=== PATIENT | female | born 1960 | race Caucasian/White ===

== ENCOUNTER 2021-01-27 10:24 | Outpatient (CLI) | payer OTHER ==
--- NOTE | 2021-01-30 15:51 | Ultrasound Report ---
LIMITED ULTRASOUND OF LEFT BREAST: 01/27/2021 CLINICAL: Palpable left breast lump by physician. Comparison is made to exam dated: 01/27/2021 mammogram - [facility]. Real-time ultrasound of the left breast 2 o'clock region was performed. Heath scale images of the re al-time examination were reviewed. No significant abnormalities were seen sonographically in the left breast. IMPRESSION: NEGATIVE There is no sonographic evidence of malignancy. There is no abnormality seen in the left breast to correspond with the palpable abnormality, however, clinical correlation is recommended. A 1 year screening mammogram is recommended. This exam was interpreted at Station ID: [id number]. Electronically Signed By: Eleuterio strauss/kiara:01/27/2021 14:18:43 Ultrasound BI-RADS: 1 Negative BI-RADS CATEGORY: (1) - 1 RECOMMENDATION: (ANNUAL) - Recommend routine annual screening mammography. [id number] 1 year screening LATERALITY: (B)
--- NOTE | 2021-01-30 15:51 | Mammography Report ---
BILATERAL DIGITAL DIAGNOSTIC MAMMOGRAM 3D/2D: 01/27/2021 CLINICAL: Palpable lumps in both breasts. No prior exams were available for comparison. There are scattered fibroglandular elements in both br easts. There are surgical clips in axillae. There also is a benign intramammary node in both breasts in the lateral aspect. No significant masses, calcifications, or other findings are seen in either breast. IMPRESSION: INCOMPLETE: NEEDS ADDITIONAL IMAGING EVALUATION There is no abnormality seen in either breast to correspond with the palpable abnormality in the uppe r outer quadrant. Targeted ultrasound is recommended for further evaluation, which will be scheduled immediately following this exam. This exam was interpreted at Station ID: [id number]. NOTE: For mammograms, a report in lay terms will be sent to the patient. Approximately 15% of breast malignancies will not be visualized mammographically. In the management of a palpable breast mass, a negative mammogram must not discourage biopsy of a clinically suspicious lesion. Electronically Signed By: Eleuterio strauss/kiara:01/27/2021 14:16:23 ACR BI-RADS Category 0: Incomplete 3340F PARENCHYMAL PATTERN: (A) - The breast(s) demonstrate(s) scattered fibroglandular densities. BI-RADS CATEGORY: (0) - 0 Ultrasound [id number] Immediate follow-up LATERALITY: (B)
--- NOTE | 2021-01-30 15:51 | Ultrasound Report ---
LIMITED ULTRASOUND OF RIGHT BREAST: 01/27/2021 CLINICAL: Palpable right breast lump by physician. Comparison is made to exam dated: 01/27/2021 mammogram - [facility]. Real-time ultrasound of the right breast 11 o'clock region was performed. Heath scale images of the r eal-time examination were reviewed. No significant abnormalities were seen sonographically in the right breast. IMPRESSION: NEGATIVE There is no sonographic evidence of malignancy. There is no abnormality seen in the right breast to correspond with the palpable abnormality, however , clinical correlation is recommended. A 1 year screening mammogram is recommended. This exam was interpreted at Station ID: [id number]. Electronically Signed By: Eleuterio strauss/kiara:01/27/2021 14:17:56 Ultrasound BI-RADS: 1 Negative BI-RADS CATEGORY: (1) - 1 RECOMMENDATION: (ANNUAL) - Recommend routine annual screening mammography. [id number] 1 year screening LATERALITY: (B)
== END 2021-01-27 10:25 | disposition home or self-care (01) ==
LOC: DI 10:24
PROVIDERS: ATTEND Nurse Practitioner
DX: N63.21 Unspecified lump in the left breast, upper outer quadrant (principal); N63.11 Unspecified lump in the right breast, upper outer quadrant

== ENCOUNTER 2021-02-14 10:35 | Emergency (ER) | payer OTHER ==
[2021-02-14 11:22] LABS: BASOPHILS # (AUTO) 0.1 10^3/uL (0.0-0.1); EOSINOPHILS # (AUTO) 0.4 10^3/uL (0.0-0.7); EOSINOPHILS % (AUTO) 5.5 %; HGB - HEMOGLOBIN 14.7 g/dL (12.0-16.0); LYMPHOCYTES # (AUTO) 2.2 10^3/uL (1.5-3.5); MEAN CORPUSCULAR HEMOGLOBIN 29.8 pg (27.0-31.0); MEAN CORPUSCULAR HGB CONC 33.4 g/dL (32.0-36.0); MEAN CORPUSCULAR VOLUME 89.1 fL (81.0-99.0); MEAN PLATELET VOLUME 9.7 fL (7.9-10.8); MONOCYTES # (AUTO) 0.5 10^3/uL (0.0-1.0); MONOCYTES % (AUTO) 6.9 %; NEUTROPHILS # (AUTO) 3.8 10^3/uL (1.5-6.6); NEUTROPHILS % (AUTO) 54.5 %; PLT - PLATELET COUNT 300 10^3/uL (130-450); RED BLOOD COUNT 4.94 10^6/uL (4.20-5.40); RED CELL DISTRIBUTION WIDTH 13.1 % (12.0-15.0)
[2021-02-14 11:22] LABS: BILIRUBIN,URINE NEGATIVE (NEGATIVE); GLUCOSE, URINE (UA) NEGATIVE (NEGATIVE); KETONES,URINE (UA) NEGATIVE (NEGATIVE); LEUKOCYTE ESTERASE, URINE MODERATE (NEGATIVE); NITRITE,URINE NEGATIVE (NEGATIVE); OCCULT BLOOD,URINE TRACE-INTA (NEGATIVE); PROTEIN,URINE NEGATIVE (NEGATIVE); UROBILINOGEN,URINE 0.2 (NORMAL) E.U./dL (NORMAL)
[2021-02-14 11:23] LABS: CLARITY,URINE CLEAR (CLEAR)
[2021-02-14] MEDS ORDERED: ONDANSETRON 4 MG/2 ML VIAL IVP STA (11:36)
[2021-02-14] MEDS ORDERED: fentaNYL 100 MCG/2 ML VIAL IVP STA (11:36)
[2021-02-14] MEDS ORDERED: SODIUM CHLORIDE 0.9% 1,000 ML IV STA (11:36)
[2021-02-14 11:37] LABS: ALBUMIN 4.2 g/dL (3.2-5.5); ALBUMIN/GLOBULIN RATIO 1.3 (1.0-2.2); BILIRUBIN,TOTAL 0.8 mg/dL (0.2-1.0); CALCIUM 9.7 mg/dL (8.5-10.3); CREATININE 0.9 mg/dL (0.4-1.0); POTASSIUM 4.5 mmol/L (3.5-5.0); TOTAL PROTEIN 7.4 g/dL (6.7-8.2)
--- NOTE | 2021-02-14 11:39 | ED Physician Documentation ---
History of Present Illness - Stated complaint Stated Complaint: ABD PX - Chief complaint Chief Complaint: Abd Pain - Additonal information Additional information: 60-year-old female presents emergency department for evaluation of acute onset left lower quadrant abdominal pain. Began last night at 7 PM. Some nausea but no vomiting. No diarrhea dysuria urgency or frequency. Pain is constant, sharp but nonradiating. Denies any bowel changes or hematochezia.+ anorexia Past surgical history includes bilateral oophorectomy only. 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 Review of Systems Constitutional: reports: Reviewed and negative Nose: reports: Reviewed and negative Throat: reports: Reviewed and negative Cardiac: reports: Reviewed and negative Respiratory: reports: Reviewed and negative GI: reports: Abdominal Pain, Nausea. denies: Vomiting, Constipation, Bloody / black stool : reports: Reviewed and negative Skin: reports: Reviewed and negative Musculoskeletal: denies: Neck pain Neurologic: reports: Reviewed and negative PD PAST MEDICAL HISTORY - Present Medications Home Medications: Ambulatory Orders Medication Instructions Recorded Confirmed No Known Home Medications 02/14/21 02/14/21 - Allergies Allergies/Adverse Reactions: Allergies Allergy/AdvReac Type Severity Reaction Status Date / Time No Known Drug Allergies Allergy Verified 02/14/21 10:50 PD ED PE EXPANDED - General General: Alert, In Pain - Cardiac Cardiac: Regular Rate, Radial strong equal, Cap refill < 2 sec. No: Murmur Present - Respiratory Respiratory: Clear to ausultation luzmaria. No: Distress, Labored - Abdomen Abdomen: Normal Bowel sounds, Tender to palpation, LLQ (LLQ abdominal pain with rebound. no guarding) - Back Back: Normal exam, Vertebral tenderness - Derm Derm: Normal color, Warm and dry. No: Rash - Neuro Neuro: Alert and Oriented X 3, CNII-XII intact - GCS Eye Opening: Spontaneous Motor: Obeys Commands Verbal: Oriented Total: 15 Results - Vitals Vitals: Vital Signs - 24 hr 02/14/21 02/14/21 10:50 13:08 Temperature 37.0 C 36.1 C L Heart Rate 82 65 Respiratory 17 16 Rate Blood Pressure 154/90 H 153/84 H O2 Saturation 97 100 Oxygen O2 Source Room air - Labs Labs: Laboratory Tests 02/14/21 02/14/21 02/14/21 11:02 11:17 11:17 WBC 7.0 RBC 4.94 Hgb 14.7 Hct 44.0 MCV 89.1 MCH 29.8 MCHC 33.4 RDW 13.1 Plt Count 300 MPV 9.7 Neut # (Auto) 3.8 Lymph # (Auto) 2.2 [place] # (Auto) 0.5 Eos # (Auto) 0.4 Baso # (Auto) 0.1 Absolute Nucleated RBC 0.00 Nucleated RBC % 0.0 Sodium 141 Potassium 4.5 Chloride 107 Carbon Dioxide 26 Anion Gap 8.0 BUN 15 Creatinine 0.9 Estimated GFR (MDRD) 64 L Glucose 110 H Calcium 9.7 Total Bilirubin 0.8 AST 23 ALT 23 Alkaline Phosphatase 69 Total Protein 7.4 Albumin 4.2 Globulin 3.2 Albumin/Globulin Ratio 1.3 Lipase 29 Urine Color YELLOW Urine Clarity CLEAR Urine pH 7.0 Ur Specific [place] 1.015 Urine Protein NEGATIVE Urine Glucose (UA) NEGATIVE Urine Ketones NEGATIVE Urine Occult Blood TRACE-INTA Urine Nitrite NEGATIVE Urine Bilirubin NEGATIVE Urine Urobilinogen 0.2 (NORMAL) Ur Leukocyte Esterase MODERATE H Urine RBC 0-5 Urine WBC 0-3 Ur Squamous Epith Cells MOD Squamous H Urine Bacteria Few Ur Microscopic Review INDICATED Urine Culture Comments NOT INDICATED - Rads (name of study) CT Abd Radiology: Final report received (Complete situs inversus. Normal appendix is seen in the left lower quadrant. No evidence of acute appendicitis or diverticulitis. No abscess collection no free fluid or free air. Mild dependent atelectasis. Mild hepatomegaly and hepatic steatosis) PD MEDICAL DECISION MAKING - ED course Complexity details: reviewed results, considered differential ED course: 60-year-old female presents emergency department for evaluation of left lower quadrant abdominal pain that was acute onset yesterday evening about 7 PM. 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 She had some nausea but no vomiting. No urinary symptoms. On exam she had focal tenderness in the left lower quadrant with rebound but no guarding. Screening labs were essentially unremarkable without findings to suggest urinary tract infection significant leukocytosis. She had normal liver and renal function as well. CT of the abdomen also demonstrated complete situs inversus but no secondary findings to suggest acute appendicitis or diverticulitis. No significant obstipation seen on CAT scan. Patient was given fentanyl and a limited amount of Zofran here in the emergency department with marked improvement in her symptoms. She is tolerating p.o. well. At this time the cause of your pain is not clear. It is possible that this is an early appendicitis. I recommended patient to have a clear liquid diet for the next 24 hours. Trial Tylenol and ibuprofen. If not markedly improved or worsening she will return to the ER for a second look. Departure - Departure Disposition: 01 Home, Self Care Clinical Impression: Left lower quadrant abdominal pain, Situs inversus totalis Condition: Stable Record reviewed to determine appropriate education?: Yes Instructions: ED Abdominal Pain Unkn Cause Comments: My you were seen in the ER today for acute onset of left lower quadrant abdominal pain. You do have total situs inversus which means that your abdominal organs are also on the opposite side. Your screening labs today were essentially normal. The CT scan of your abdomen was also normal. With the exception of the situs inversus we do not find signs of appendicitis, bowel obstruction, diverticulitis. In some cases early appendicitis can be missed on the first CT scan if patients present too early however given your very normal labs I doubt that this is the case. I would like you to go home and take Tylenol or ibuprofen for discomfort. I do recommend a clear diet for the next 24 to 48 hours. Your symptoms are not improving, you develop fevers have uncontrolled vomiting or worsening pain then please return to the ER for a second evaluation.
[2021-02-14 11:40] LABS: WBC,URINE 0-3 /HPF (0-5)
[2021-02-14 11:41] LABS: BACTERIA,URINE Few /HPF (None Seen); RBC,URINE 0-5 /HPF (0-5); SQUAMOUS EPITHELIAL CELL,UR MOD Squamous (<= Few)
[2021-02-14] MEDS ORDERED: IOPAMIDOL-300 50 ML VIAL ONE (12:00)
--- NOTE | 2021-02-14 13:04 | CT Report ---
PROCEDURE: Abdomen/Pelvis W INDICATIONS: LLQ abdominal pain; hx of situs inversus CONTRAST: IV CONTRAST: Isovue 300 ml: 100 PO CONTRAST: *NO PO CONTRAST TECHNIQUE: After the administration of IV contrast, 5 mm thick sections acquired from the diaphragms to the symp hysis. 5 mm thick coronal and sagittal reformats were acquired. For radiation dose reduction, the f ollowing was used: automated exposure control, adjustment of mA and/or kV according to patient size. COMPARISON: None. FINDINGS: Image quality: Excellent. ABDOMEN: Lung bases: Dependent atelectasis in posterior aspect of bilateral lower lung [place] are seen. Heart size is normal. Solid organs: Situs inverses is noted with liver is seen in left upper quadrant. There is mild cardio megaly. Mild hepatic steatosis is seen. No discrete hepatic lesion. Spleen is noted in right upper qu adrant. Spleen is normal in size and enhancement. Gallbladder is within normal limits. Biliary syste m is non dilated. Pancreas enhances normally. No adrenal nodules. Kidneys demonstrate normal size and enhancement, without hydronephrosis. Peritoneum and bowel: Bowel loops demonstrate normal wall thickness and caliber. No free fluid or a ir. Appendix is visualized in left lower quadrant abdomen and is normal in size and appearance. No e vidence of diverticulitis. Mild fecal stasis in the colon is seen. Nodes and vessels: No retroperitoneal or mesenteric adenopathy by size criteria. Aorta and inferior vena cava are normal in size. Miscellaneous: No ventral hernias. PELVIS: Genitourinary: Bladder wall thickness is normal. Miscellaneous: No inguinal hernias or adenopathy. Bones: No suspicious bony lesions. No vertebral body compression fractures. IMPRESSION: 1. Complete situs inversus. Normal appendix is seen in left lower quadrant. No evidence of acute appe ndicitis or diverticulitis. No abscess collection. No free fluid or free air. 2. Bibasilar dependent atelectasis. 3. Mild hepatomegaly and mild hepatic steatosis. No discrete hepatic lesion. Normal-appearing gallbla dder. Reviewed by: Dean Chance MD on 02/14/2021 1:03 PM PDT Approved by: Dean Chance MD on 02/14/2021 1:03 PM PDT Station ID: [id number]
[2021-02-14 13:09] VITALS: BP 153/84
[2021-02-14] MEDS ORDERED: IOPAMIDOL-300 50 ML VIAL IVP ONE (13:14)
== END 2021-02-14 13:40 | disposition home or self-care (01) ==
LOC: ED 10:35
DX: Q89.3 Situs inversus (principal)
CPT/HCPCS: 36415; 74177; 80053; 81001; 83690; 85025; 96374; 96375; 99284; Q9967; 81003; 87086